=== PATIENT | male | born 1985 | race Caucasian/White ===

== ENCOUNTER 2020-02-27 06:53 | Outpatient (CLI) | payer OTHER, SELFPAY ==
[2020-02-27 07:44] LABS: Basophils Absolute Auto 0.1 K/mm3 (0.0-0.1); Basophils Percent Auto 0.8 % (0.2-1.2); Eosinophils Absolute Auto 0.9 K/mm3 (0-0.3); Hematocrit 53.3 % (42.0-52.0); Hemoglobin 18.2 g/dL (14.0-18.0); Immature Granulocyte Absolute 0.03 K/mm3 (0.00-0.031); Immature Granulocyte Percent A 0.3 % (0-0.5); Lymphocytes Absolute Auto 2.59 K/mm3 (0.9-3.2); Lymphocytes Percent Auto 26.3 % (18.3-44.2); Mean Corpuscular HGB Conc 34.1 g/dl (32-36); Mean Corpuscular Hemoglobin 33.5 pg (26-34); Mean Platelet Volume 11.1 fl (7.4-10.4); Monocytes Absolute Auto 0.9 K/mm3 (0.1-0.6); Monocytes Percent Auto 8.6 % (2.6-8.5); Neutrophils Absolute Auto 5.4 K/mm3 (1.3-6.7); Platelet Count Result 239 k/mm3 (150-375); Red Blood Count 5.44 M/mm3 (4.6-6.20); White Blood Count 9.8 K/mm3 (4.5-10.0)
[2020-02-27 08:15] LABS: LDL Cholesterol Direct 92 mg/dL
[2020-02-27 09:23] LABS: Alanine Aminotransferase 26 U/L (4-50); Alkaline Phosphatase 57 U/L (38-126); Anion Gap 5 mmol/L (8-16); Aspartate Amino Transferase 40 U/L (17-59); Bilirubin,Total 0.7 mg/dL (0.2-1.3); Blood Urea Nitrogen 17 mg/dL (9-20); Calcium 8.9 mg/dL (8.4-10.2); Carbon Dioxide 31 mmol/L (22-30); Chloride 102 mmol/L (98-107); Cholesterol 149 mg/dL (0-200); Estimated Glomerular Filt Rate > 60; Glucose 92 mg/dL (75-110); HDL Direct 35 mg/dL; Potassium 4.1 mmol/L (3.4-5.0); Sodium 138 mmol/L (137-145); Triglycerides 180 mg/dL (<150)
== END 2020-02-27 06:54 | disposition home or self-care (01) ==
PROVIDERS: PCP Internal Medicine; Visit Provider Nurse Practitioner
DX: Z13.228 Encounter for screening for other metabolic disorders (principal); Z13.220 Encounter for screening for lipoid disorders
CPT/HCPCS: 36415; 80053; 80061; 85025

== ENCOUNTER 2024-05-18 08:08 | Emergency (ER) | payer OTHER, SELFPAY ==
[2024-05-18 08:12] VITALS: BP 166/80; PULSE 75; RESP 20; TEMP 37.7; O2SAT 100
--- NOTE | 2024-05-18 08:24 | ED.SKABFB ---
HPI - Skin/Abscess/Foreign Bdy General Chief complaint: Skin/Abscess/Foreign Body Stated complaint: poss shingles Time Seen by Provider: 05/18/24 08:24 Source: patient, RN notes reviewed and old records reviewed Mode of arrival: ambulatory Limitations: no limitations History of Present Illness HPI narrative: 39 year old male presents to [facility] care with complaints of right shoulder pain starting about 2 weeks ago and he thought that he had irritated his rotator cuff. He states then he started having some burning and itching in his right axilla. Patient states on past Saturday he noted red raised rash to the posterior right scapula area and right axilla and down inner arm and to the right side of his chest. MD complaint: rash and lesion (right posterior shoulder, right upper chest, axilla and down inner arm) Onset (ago): day(s) (3 days of rash,1-2 weeks of pain right shoulder, right axilla, and right chest) Severity: moderate Quality: burning and pruritic Treatments prior to arrival: other (hydrocortisone ointment) Related Data Allergies Allergy/AdvReac Type Severity Reaction Status Date / Time NKDA Allergy Mild unknown Uncoded 05/18/24 08:17 Review of Systems Review of Systems: CONSTITUTIONAL: Denies fever, chills, or sweats. CARDIOVASCULAR: Denies chest pain, palpitations, or edema. RESPIRATORY: Denies cough or dyspnea. GASTROINTESTINAL: Denies abdominal pain, nausea, vomiting SKIN: Reports red raised painful burning and itching lesions to right posterior upper back, right chest, in axilla and down inner right arm. with no vesicle formation or drainage. MUSCULOSKELETAL: Denies myalgia. NEUROLOGIC: Denies headache, numbness All systems reviewed & are unremarkable except as noted in HPI and below PMFSH Past Medical History Medical History Tobacco use Hypogonadism Anxiety Family History Family History Sibling Depression Family history of malignant neoplasm of cervix Mother Family history of bipolar disorder Father Cerebrovascular accident Social History Social History Social History: Caffeine- yes Years smoked: 20 Smoking status: Current every day smoker Alcohol intake: current Alcohol use details: yes Substance use: current Substance use type: marijuana Lack of Transportation: No Lack of Food: Never True Current Housing: I Have Housing Concerned About Future Housing: No Difficulty Paying Gas/Electric Bills: No Difficulty Paying for Meds: No Currently Unemployed: No Education: High School Diploma/GED Difficulty w/ Childcare or Family Care: No Comments At time of signature, agree with nursing past medical, surgical, social and family history. There is no relevant family history pertinent to the presenting complaint Exam Narrative: GENERAL: Well-appearing, well-nourished, and in no acute distress. HEAD: Normocephalic, atraumatic. EYES: PERRLA and EOMI. ENT: Nares clear, no rhinorrhea or epistaxis. Mucous membranes moist. NECK: Supple.no lymphadenopathy CHEST: Clear to auscultation. No respiratory distress. HEART: Regular rate and rhythm. No murmur heard. Normal peripheral pulses. ABDOMEN: Soft, nontender, nondistended, normal active bowel sounds. EXTREMITIES: Normal range of motion. No edema. SKIN: Warm, dry. Erythema, tenderness, burning with raised lesions which are burning and itchy with no vesicles noted to right upper posterior shoulder area,right axilla and down right inner arm, and also to right chest area. No open draining lesions. NEURO: No focal deficits. Alert and oriented x3. Course Course Emergency Course: Patient is aware of diagnosis, understands and agrees to treatment plan. Anticipatory guidance given. Patient agrees to follow-up as directed and is aware of reasons to seek care at the emergency department. Portions of this record may have been created with voice recognition software Level of Care: Express Care Visit Vital Signs Vital signs: Vital Signs Temperature 37.7 C H 05/18/24 08:12 Pulse Rate 75 05/18/24 08:12 Respiratory Rate 20 05/18/24 08:12 Blood Pressure 166/80 H 05/18/24 08:12 Pulse Oximetry 100 05/18/24 08:12 Oxygen Delivery Room Air 05/18/24 08:12 Temperature 37.7 C H 05/18/24 08:12 Pulse Rate 75 05/18/24 08:12 Respiratory Rate 20 05/18/24 08:12 Blood Pressure 166/80 H 05/18/24 08:12 Pulse Oximetry 100 05/18/24 08:12 Oxygen Delivery Room Air 05/18/24 08:12 Reviewed MDM - Skin/Abscess/Foreign Bdy MDM Narrative Medical decision making narrative: Does not appear at this time to be erythema multiforme, bullous, SJS, TEN; no evidence at this time to suggest RMSF, endocarditis or Lyme disease; patient looks well, nontoxic and is tolerating oral intake; no neurologic signs or symptoms; no headache, photophobia or neck pain; afebrile; appropriate for initial outpatient treatment; discussed the importance of follow-up, patient agrees. Patient does not have history of penetrating trauma, laceration, blunt trauma, recent surgery, immunosuppression, malignancy, obesity, alcoholism, corticosteroid use. Question cellulitis, necrotizing soft tissue infection, abscess. Differential Diagnosis Differential diagnosis: Likely abscess of skin or subcutaneous tissue, herpes zoster, cellulitis and other (shingles rash) Medical Records Attestation: I reviewed the patient's medical records. Critical Care Time Critical Care Time Critical Care Time: No Discharge Plan Discharge Clinical Impression: Shingles rash Qualifiers: Herpes zoster complications: without complications Qualified Code(s): B02.9 - Zoster without complications Patient Disposition: Home, Self-Care Condition: Stable Instructions: Antibiotic Form, Shingles (ED) Additional Instructions: Apply lidocaine ointment to rash as prescribed watch for any infection--redness, swelling, drainage Tylenol or Ibuprofen or Naproxen for pain follow up with PCP in 7-10 days for a wound check recheck if develop fever, chills, increasing symptom Go to the ER if your symptoms become worse of if ANY new symptoms develop Valtrex 1000mg 3 times daily for 7 days If your symptoms persist, change or worsen significantly before you can contact your personal physician then please, without delay, go to the emergency department for further evaluation. Follow-up with PCP in 7-10 days or sooner if needed Follow up with PCP soon in regards to your blood pressure which is elevated above threshold for referral. Blood pressure above 120/80 may indicate pre-hypertension. 166/80 Patient Language: Icelandic Prescriptions: New valacyclovir [Valtrex] 1 gram tablet 1,000 mg PO Q8H Qty: 21 0RF lidocaine 5 % ointment 1 applic topical QID Qty: 50 0RF No Action testosterone cypionate 200 mg/mL oil 80 mg IM .twice per week Qty: 10 1RF (DME) BD Luer-Abdoulaye Syringe 3 mL 25 gauge x 1 syringe See Rx Instructions .Route Qty: 100 0RF Rx Instructions: To inject tesosterone. Follow-up/Referrals: Julius Nelson DO [Primary Care Provider] - Time of Disposition: 08:40 Quality Olema Coma Scale Eyes: Open Verbal: Oriented and Alert Motor: Follows Commands Arabella Coma Total Score: 15
== END 2024-05-18 08:45 | disposition home or self-care (01) ==
PROVIDERS: Emergency Provider Registered Nurse; PCP Internal Medicine
DX: B02.9 Zoster without complications (principal); F17.200 Nicotine dependence, unspecified, uncomplicated; F12.90 Cannabis use, unspecified, uncomplicated
CPT/HCPCS: 99213; G0463